=== PATIENT | female | born 1935 | race Asian ===

== ENCOUNTER 2018-11-17 13:33 | Outpatient (CLI) | payer MEDICARE, MEDICAID ==
[~2018-11-17] VITALS: Ht 154.9 cm; Wt 58.5 kg
[2018-11-17] MEDS ORDERED: LIPITOR80 MG ORAL (14:56)
[2018-11-17] MEDS ORDERED: AMIODARONE HCL400 M1 ORAL (14:56)
[2018-11-17] MEDS ORDERED: MONTELUKAST SOD10 MG ORAL (14:56)
[2018-11-17] MEDS ORDERED: PLAVIX75 MG ORAL (14:56)
--- NOTE | 2018-11-17 14:58 | GI Initial Consult Note ---
History of Present Illness General Date patient seen: Nov 17, 2018 Time patient seen: 14:50 Referring physician: GEORGE Reason for Consultation: CA19-9 ELEVATION Present Illness HPI This is a 83-year-old female patient presents today for the evaluation of elevated CA 19-9 of 164. The patient had a recent MRCP performed noted with impression of no evidence of pancreatic abnormality and noted scoliosis. Also documented that the MRCP demonstrated no intra-or extrahepatic biliary dilation. The patient presents today with no GI symptoms; denies any abdominal pain, denies any nausea vomiting or diarrhea. Denies any unintentional weight loss or changes in dietary habits. No signs of abuse or neglect. Patient is not fall risk. Home Meds Reported Medications Atorvastatin (Lipitor) 80 Mg Tablet, 80 MG ORAL DAILY, TAB 0 Refills 11/17/18 Montelukast Sodium* (MONTELUKAST SODIUM*) 10 Mg Tablet, 10 MG ORAL DAILY, TAB 11/17/18 Clopidogrel Bisulfate* (PLAVIX*) 75 Mg Tablet, 75 MG ORAL DAILY, TAB 11/17/18 Amiodarone Hcl* (AMIODARONE HCL*) 400 Mg Tablet, 400 MG ORAL EVERY 12 HOURS, TAB 11/17/18 Allergies: Coded Allergies: No Known Allergies (Unverified , 11/17/18) Patient History PMH Narrative Asthma Cholesterol GERD Hemorrhoids Past surgical history none Pertinent Family History: none Social History: Denies: smoking, alcohol use, drug use, other Review of Systems All Other Systems: negative except mentioned in HPI Physical Exam Temperature 98.0 Blood pressure 128/61 96% room air Height 5 1 Weight 129 pounds Sp02 EP Interpretation: reviewed, normal General Appearance: well appearing, no apparent distress, alert Head: normocephalic EENT: PERRL/EOMI, normal ENT inspection Neck: supple Respiratory: normal breath sounds, no respiratory distress Cardiovascular: normal rate Gastrointestinal: normal inspection, non tender, soft, normal bowel sounds, non -distended Rectal: deferred Genitourinary: no CVA tenderness Musculoskeletal: normal inspection, back normal Neurologic: normal inspection, alert, oriented x3, responsive Psychiatric: normal inspection, judgement/insight normal, memory normal Skin: normal inspection, normal color, no rash, warm/dry, palpation normal, well hydrated Lymphatic: normal inspection, no adenopathy GI: Plan Problems: (1) Cancer antigen 19-9 above reference range (2) Asthma (3) Hyperlipidemia (4) GERD (gastroesophageal reflux disease) (5) Hemorrhoids Plan We will recommend that the patient have a EUS performed, however the patient refuses at this time and wishes to think about it Continue current plan of care RTC prn We will follow with additional recommendations if procedures performed Discussed with Dr. Hayes. Thank you for this patient referral, we will follow. The patient was seen and examined at bedside and all new and available data was reviewed in the patients chart. I agree with the above findings, impression and plan. (Patient seen earlier today. Signature stamp does not reflect patient encounter time.). - MD Carlota Cagle,[facility] Nov 17, 2018 14:58
[2018-11-17 15:57] VITALS: BP 128/61
== END 2018-11-17 14:03 | disposition home or self-care (01) ==
LOC: PAN 13:33
DX: R97.1 Elevated cancer antigen 125 [CA 125] (principal); J45.909 Unspecified asthma, uncomplicated; E78.5 Hyperlipidemia, unspecified; K21.9 Gastro-esophageal reflux disease without esophagitis; K64.9 Unspecified hemorrhoids
CPT/HCPCS: 99202